=== PATIENT | female | born 1990 | race Asian ===

== ENCOUNTER 2023-03-07 14:00 | Outpatient (RCR) | payer OTHER, SELFPAY | END 2023-03-07 23:59 | disposition home or self-care (01) | LOC: RPT 14:00 | PROVIDERS: ATTENDING PHYSICIAN Nurse Practitioner Adult Health; FAMILY PHYSICIAN Nurse Practitioner Family | DX: R39.14 Feeling of incomplete bladder emptying (principal); N94.10 Unspecified dyspareunia; M62.89 Other specified disorders of muscle; R35.0 Frequency of micturition | CPT/HCPCS: 97110; 97112; 97140; 97163; 97530 ==

== ENCOUNTER 2023-04-06 10:01 | Outpatient (RCR) | payer OTHER, SELFPAY | END 2023-04-06 23:59 | disposition home or self-care (01) | LOC: RPT 10:01 | PROVIDERS: ATTENDING PHYSICIAN Nurse Practitioner Adult Health; FAMILY PHYSICIAN Nurse Practitioner Family | DX: R39.14 Feeling of incomplete bladder emptying (principal); N94.10 Unspecified dyspareunia; M62.89 Other specified disorders of muscle; R35.0 Frequency of micturition; Z73.6 Limitation of activities due to disability | CPT/HCPCS: 97010; 97110; 97112; 97140; 97530 ==

== ENCOUNTER 2023-04-27 09:57 | Outpatient (RCR) | payer OTHER, SELFPAY | END 2023-04-27 23:59 | disposition home or self-care (01) | LOC: RPT 09:57 | PROVIDERS: ATTENDING PHYSICIAN Nurse Practitioner Adult Health; FAMILY PHYSICIAN Nurse Practitioner Family | DX: R39.14 Feeling of incomplete bladder emptying (principal); N94.10 Unspecified dyspareunia; M62.89 Other specified disorders of muscle; R35.0 Frequency of micturition; Z73.6 Limitation of activities due to disability | CPT/HCPCS: 97110; 97112; 97140; 97530 ==

== ENCOUNTER 2023-05-11 09:40 | Outpatient (RCR) | payer OTHER, SELFPAY | END 2023-05-11 23:59 | disposition home or self-care (01) | LOC: RPT 09:40 | PROVIDERS: ATTENDING PHYSICIAN Nurse Practitioner Adult Health; FAMILY PHYSICIAN Nurse Practitioner Family | DX: R39.14 Feeling of incomplete bladder emptying (principal); N94.10 Unspecified dyspareunia; M62.89 Other specified disorders of muscle; R35.0 Frequency of micturition; Z73.6 Limitation of activities due to disability | CPT/HCPCS: 97110; 97112; 97140; 97530 ==

== ENCOUNTER → 2024-11-28 10:19 | Outpatient (REF) | payer OTHER, SELFPAY | LOC: HWRAD 10:19 | PROVIDERS: ATTENDING PHYSICIAN Nurse Practitioner Adult Health; FAMILY PHYSICIAN Nurse Practitioner Family | DX: R10.2 Pelvic and perineal pain (principal) | CPT/HCPCS: 76830; 76856 ==